=== PATIENT | female | born 1995 | race Caucasian/White ===

== ENCOUNTER 2024-10-31 10:03 | Emergency (ER) | payer OTHER ==
[~2024-10-31] VITALS: Ht 170.2 cm; Wt 64.3 kg
[2024-10-31 10:06] VITALS: BP 118/75; TEMP 97.6; O2SAT 98
[2024-10-31] MEDS ORDERED: MULTTAB20 PO (10:10)
[2024-10-31 10:56] LABS: BASO # 0.0 10^3/uL (0.0-0.2); BASO % 0.7 % (0.0-1.0); EOS # 0.0 10^3/uL (0.0-0.5); EOS % 0.7 % (0.0-3.0); LYMPH # 1.5 10^3/uL (1.5-5.0); LYMPH % 26.3 % (24.0-44.0); MONO # 0.4 10^3/uL (0.0-0.8); MONO % 6.7 % (2.0-8.0); NEUTROPHILS # 3.7 10^3/uL (1.5-8.5); NEUTROPHILS % 65.4 % (36.0-66.0); PLATELET COUNT, AUTOMATED 284 10^3/uL (150-450)
[2024-10-31 11:24] LABS: CALCIUM LEVEL 9.1 MG/DL (8.5-10.1); CARBON DIOXIDE LEVEL 25 MMOL/L (20-31); CHLORIDE LEVEL 108 MMOL/L (98-107); CREATININE FOR GFR 0.70 MG/DL (0.55-1.30); GLOMERULAR FILTRATION RATE > 90.0 (>60); POTASSIUM SERUM 3.9 MMOL/L (3.5-5.1); SODIUM LEVEL 146 MMOL/L (136-145)
[2024-10-31 11:45] LABS: Trichomonas vaginalis (AMP) NOT DETECTED (NEGATIVE)
[2024-10-31 11:51] LABS: HCG, SERUM QUANTITATIVE 4.9 MIU/ML (<4.2)
[2024-10-31 11:59] LABS: HCG, SERUM QUALITATIVE NEGATIVE (NEGATIVE)
[2024-10-31 12:09] LABS: GC DNA AMPLIFICATION NEGATIVE (NEGATIVE)
== END 2024-10-31 13:23 | disposition home or self-care (01) ==
LOC: M ED 10:03
DX: N91.2 Amenorrhea, unspecified (principal); Z79.899 Other long term (current) drug therapy